=== PATIENT | female | born 1975 | race Caucasian/White ===

== ENCOUNTER 2018-04-30 15:11 | Outpatient (CLI) | payer OTHER | END 2018-04-30 15:12 | disposition home or self-care (01) | LOC: SC 15:11 | PROVIDERS: ATTEND Nurse Practitioner Family | DX: G47.10 Hypersomnia, unspecified (principal); R53.83 Other fatigue; G47.8 Other sleep disorders | CPT/HCPCS: 99204; 99212 ==

== ENCOUNTER 2018-06-25 19:30 | Outpatient (CLI) | payer OTHER | END 2018-06-25 19:31 | disposition home or self-care (01) | LOC: SC 19:30 | PROVIDERS: ATTEND Internal Medicine Pulmonary Disease | DX: R06.83 Snoring (principal); G47.10 Hypersomnia, unspecified; G47.8 Other sleep disorders; R53.83 Other fatigue | CPT/HCPCS: 95810 ==

== ENCOUNTER 2018-08-21 12:47 | Outpatient (CLI) | payer OTHER | END 2018-08-21 12:48 | disposition home or self-care (01) | LOC: SC 12:47 | PROVIDERS: ATTEND Nurse Practitioner Family | DX: R06.83 Snoring (principal); G47.00 Insomnia, unspecified; R53.83 Other fatigue | CPT/HCPCS: 99212; 99215 ==